=== PATIENT | male | born 1995 | race African-American/Black ===

== ENCOUNTER 2022-05-27 21:10 | Emergency (ER) | payer OTHER, SELFPAY ==
[2022-05-27 21:14] VITALS: BP 133/81; PULSE 99; RESP 17; TEMP 36.7; O2SAT 97
--- NOTE | 2022-05-27 21:30 | ED_ITS ---
HPI - Wound/Laceration General Chief Complaint: Wound/Laceration Stated Complaint: lac left index finger Time Seen by Provider: 05/27/22 21:26 History of Present Illness HPI narrative: 27-year-old male presents the emergency room for evaluation of pain laceration to left index finger. Patient states he was chopping chicken and accidentally sliced his finger. States tetanus is up-to-date. Related Data Allergies Allergy/AdvReac Type Severity Reaction Status Date / Time No Known Allergies Allergy Verified 05/27/22 21:16 Review of Systems Review of Systems: CONSTITUTIONAL: Denies fever, chills, or sweats. EYES: Denies visual changes, redness, or discharge. ENT: Denies rhinorrhea, congestion, sore throat, or otalgia. CARDIOVASCULAR: Denies chest pain, palpitations, or edema. RESPIRATORY: Denies cough or dyspnea. GASTROINTESTINAL: Denies abdominal pain, nausea, vomiting, or diarrhea. GENITOURINARY: Denies dysuria or hematuria. SKIN: Reports laceration to left index finger MUSCULOSKELETAL: Denies back pain, joint pain, or myalgia. NEUROLOGIC: Denies headache, numbness, dizziness, or weakness. PSYCHIATRIC: Denies anxiety or depression. Exam Narrative: GENERAL: Well-appearing, well-nourished, no physical limitations, and in no acute distress. HEAD: Normocephalic, atraumatic. EYES: Conjunctivae normal, PERRLA and EOMI. CHEST: Clear to auscultation. No respiratory distress. No wheezes rales or rhonchi. No tenderness. HEART: Regular rate and rhythm. No murmur heard. Normal peripheral pulses. BACK: No CVA tenderness; No cervical/thoracic/lumbar tenderness, step-offs, bony abnormality; FROM EXTREMITIES: Normal range of motion. No edema. No clubbing or cyanosis SKIN: Left index finger: Skin tear to dorsal side of the medial phalanx NEURO: No focal deficits. Alert and oriented x3. MAEW. CN's II-XI intact bilaterally, normal gait PSYCH: Cooperative. Normal mood and affect. Course Course Emergency Course: Surgicel applied to wound. Hemostasis was achieved. Vital Signs Vital signs: Vital Signs Temperature 36.7 C 05/27/22 21:14 Pulse Rate 99 05/27/22 21:14 Respiratory Rate 17 05/27/22 21:14 Blood Pressure 133/81 07/09/22 21:14 Pulse Oximetry 97 05/27/22 21:14 Oxygen Delivery Room Air 05/27/22 21:14 Temperature 36.7 C 05/27/22 21:14 Pulse Rate 99 05/27/22 21:14 Respiratory Rate 17 05/27/22 21:14 Blood Pressure 133/81 05/27/22 21:14 Pulse Oximetry 97 05/27/22 21:14 Oxygen Delivery Room Air 05/27/22 21:14 Discharge Plan Discharge Clinical Impression: Avulsion of skin Patient Disposition: Home, Self-Care Condition: Stable Instructions: Antibiotic Form, Skin Avulsion (ED) Additional Instructions: Keep dressing on for 48 hours. May remove at that point. If the dressing sticks to your wound, soak your finger in warm water. Afterwards keep wound clean and dry until scab forms. Follow-up/Referrals: PHYSICIAN,SUPERVISOR ORCHARD [Primary Care Provider] - Time of Disposition: 21:56
== END 2022-05-27 22:12 | disposition home or self-care (01) ==
PROVIDERS: Emergency Provider Nurse Practitioner Family
DX: S61.211A Laceration without foreign body of left index finger without damage to nail, initial encounter (principal); W26.9XXA Contact with unspecified sharp object(s), initial encounter; Y93.G1 Activity, food preparation and clean up
CPT/HCPCS: 99282